=== PATIENT | male | born 1970 | race Caucasian/White ===

== ENCOUNTER 2018-10-23 23:00 | Emergency (ER) | payer OTHER ==
[2018-10-23] MEDS ORDERED: NS 1,000 ML IV ONE (23:58)
[2018-10-23] MEDS ORDERED: METOCLOPRAMIDE 10 MG/2 ML VIAL IVP ONE (23:58)
[2018-10-23] MEDS ORDERED: KETOROLAC 15 MG/1 ML SDV IVP ONE (23:58)
[2018-10-24 00:03] LABS: PLATELET COUNT 241 10^3/uL (150-400)
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
[2018-10-24 02:18] VITALS: BP 121/78
--- NOTE | 2018-10-24 07:11 | CPEKG ---
Test Reason : OPEN Blood Pressure : / mmHG Vent. Rate : 091 BPM Atrial Rate : 090 BPM P-R Int : 160 ms QRS Dur : 102 ms QT Int : 384 ms P-R-T Axes : 078 -03 025 degrees QTc Int : 473 ms Sinus rhythm Confirmed by Ct Castellanos ([id number]) on 10/24/2018 7:11:16 AM Referred By: Ct Castellanos Confirmed By:Ct Castellanos
== END 2018-10-24 02:20 | disposition home or self-care (01) ==
LOC: EDUNIT#
DX: R55 Syncope and collapse (principal); R51 Headache; E86.9 Volume depletion, unspecified; Z86.73 Personal history of transient ischemic attack (TIA), and cerebral infarction without residual deficits
CPT/HCPCS: 80305; 96374; G0480; J1885; J2765